=== PATIENT | male | born 1975 | race Asian ===

== ENCOUNTER 2023-03-03 11:14 | Outpatient (CLI) | payer OTHER | END 2023-03-03 19:17 | disposition home or self-care (01) | LOC: CT 11:14 | PROVIDERS: ATTEND Internal Medicine | DX: R10.9 Unspecified abdominal pain (principal); R30.0 Dysuria ==

== ENCOUNTER 2023-03-17 08:04 | Outpatient (CLI) | payer OTHER | END 2023-03-17 19:11 | disposition home or self-care (01) | LOC: CT 08:04 | PROVIDERS: ATTEND Internal Medicine | DX: R93.5 Abnormal findings on diagnostic imaging of other abdominal regions, including retroperitoneum (principal) | CPT/HCPCS: Q9963 ==